=== PATIENT | male | born 1985 | race Caucasian/White ===

== ENCOUNTER 2020-03-29 09:21 | Emergency (ER) | payer OTHER ==
[~2020-03-29] VITALS: Ht 185.4 cm; Wt 77.1 kg
[2020-03-29] MEDS ORDERED: KETO10TA2 PO (13:01)
== END 2020-03-29 14:02 | disposition home or self-care (01) ==
LOC: ER 09:21
DX: S90.31XA Contusion of right foot, initial encounter (principal); M25.571 Pain in right ankle and joints of right foot; M79.661 Pain in right lower leg; W22.8XXA Striking against or struck by other objects, initial encounter; Y93.89 Activity, other specified; Y92.814 Boat as the place of occurrence of the external cause; Y99.8 Other external cause status

== ENCOUNTER 2021-10-31 09:06 | Outpatient (CLI) | payer OTHER ==
[~2021-10-31 09:06] MED LIST: KETO10TA2 PO
== END 2021-10-31 13:53 | disposition home or self-care (01) ==
LOC: RAD 09:06
PROVIDERS: ATTEND Podiatrist Foot Surgery
DX: M77.31 Calcaneal spur, right foot (principal); M77.32 Calcaneal spur, left foot

== ENCOUNTER → 2021-12-23 | Emergency (ER) | payer OTHER ==
[~2021-12-23] VITALS: Ht 185.4 cm; Wt 61.2 kg
[~2021-12-23] MED LIST changes: +CLONAZEPAM2 M1 PO; +DICLOFENAC-MIS1 EAC1 PO; +SEROQUEL XR200 MG PO; +ZOLOFT100 MG
== END | disposition left against medical advice (07) ==
LOC: ER 15:00
DX: Z53.21 Procedure and treatment not carried out due to patient leaving prior to being seen by health care provider (principal)

== ENCOUNTER → 2022-03-31 | Emergency (ER) | payer OTHER | END | disposition left against medical advice (07) | LOC: ER 10:56 | DX: Z53.21 Procedure and treatment not carried out due to patient leaving prior to being seen by health care provider (principal) ==

== ENCOUNTER 2022-06-17 08:07 | Emergency (ER) | payer OTHER ==
[~2022-06-17] VITALS: Ht 185.4 cm; Wt 79.4 kg
[2022-06-17] MEDS ORDERED: PERCOCET 5-3251 EACH PO (11:27)
== END 2022-06-17 11:46 | disposition home or self-care (01) ==
LOC: ER 08:07
DX: S92.911A Unspecified fracture of right toe(s), initial encounter for closed fracture (principal); S99.911A Unspecified injury of right ankle, initial encounter; W10.9XXA Fall (on) (from) unspecified stairs and steps, initial encounter; Y93.9 Activity, unspecified; Y92.019 Unspecified place in single-family (private) house as the place of occurrence of the external cause; F41.8 Other specified anxiety disorders; Z91.013 Allergy to seafood